=== PATIENT | male | born 1945 | race African-American/Black ===

== ENCOUNTER → 2017-12-22 | Outpatient (CLI) | payer MEDICARE, OTHER ==
[~2017-12-22] MED LIST: ALBU8.5H5 INH; AMIO200T42 PO; APIX5TAB PO; ARIP5TAB13 PO; ATOR10TA PO; CARI350T PO; CARV25TA12 PO; CLOP75TA52 PO; COUMADIN PO; DIAZ10TA PO; DICL100G19 TD; ENOX100S5 SQ; ESZO3TAB28 PO; FURO-92 PO; FURO-93 PO; HYDR-3307 PO; HYDR-3653 PO; IPRA4AER INH; LISI-466 PO; METF10002 PO; METFORMIN HCL ER PO; NITR0.4T SL; ONDA4TAB10 PO; ONDA4TAB12 PO; OXYC-307 PO; OXYC15TA PO; OXYC30TA66 PO; PHEN100C PO; POLY17PO5 PO; POTA20TA91 PO; ROSU20TA PO; SERT100T PO; SPIR25TA PO; TIOT18CA INH; WARF5TAB PO; [UNRECOGNIZED DRUG - OTHER]; [UNRECOGNIZED DRUG - OTHER]
[2017-12-22 15:28] LABS: ALBUMIN 2.9 g/dL (3.4-5.0); ANION GAP 7 mmol/L (5-15); CALCIUM 8.4 mg/dL (8.5-10.1); CHLORIDE 113 mmol/L (98-107)
[2017-12-22 15:31] LABS: ALANINE AMINOTRANSFERASE 29 U/L (12-78); ALKALINE PHOSPHATASE 106 U/L (45-117); BILIRUBIN,TOTAL 0.6 mg/dL (0.2-1.0); CREATININE 1.71 mg/dL (0.7-1.3); TOTAL PROTEIN 6.7 g/dL (6.4-8.2)
== END | disposition home or self-care (01) ==
LOC: STAR 14:03
PROVIDERS: ATTEND Internal Medicine
DX: Z01.818 Encounter for other preprocedural examination (principal); K26.4 Chronic or unspecified duodenal ulcer with hemorrhage
CPT/HCPCS: 36415; 80053; 93005

== ENCOUNTER 2017-12-31 09:18 | Day surgery (SDC) | payer MEDICARE, OTHER ==
[2017-12-22 14:41] VITALS: BP 117/88
[~2017-12-31] VITALS: Ht 180.3 cm; Wt 82.2 kg
[2017-12-31] MEDS ORDERED: LACTATED RINGERS 1,000 ML IV SCH (10:00)
[2017-12-31] MEDS ORDERED: CARV25TA PO (10:22)
[2017-12-31] MEDS ORDERED: HYDR-3342 PO (10:22)
[2017-12-31] MEDS ORDERED: DIGO125T PO (10:22)
[2017-12-31] MEDS ORDERED: ATOR-2 PO (10:22)
[2017-12-31] MEDS ORDERED: OMEP-110 PO (10:22)
[2017-12-31] MEDS ORDERED: ISOS10TA2 PO (10:22)
[2017-12-31] MEDS ORDERED: PROPOFOL 10 MG/ML, 20ML ONE (12:14)
[2017-12-31] MEDS ORDERED: LIDOCAINE PF 2%, 5ML ONE (12:14)
[2017-12-31] MEDS ORDERED: FENTANYL PF 100 MCG/2ML IV PRN (12:30)
[2017-12-31] MEDS ORDERED: LABETALOL 5MG/ML, 20ML IV PRN (12:30)
[2017-12-31] MEDS ORDERED: ALBUTEROL/IPRATROPIUM 2.5MG/0.5MG, 3 ML NPPB PRN (12:30)
[2017-12-31] MEDS ORDERED: ONDANSETRON 2MG/ML, 2ML IV PRN (12:30)
[2017-12-31] MEDS ORDERED: OXYcodone 5 MG/5 ML ORAL.SOL UDC PO PRN (12:30)
[2017-12-31] MEDS ORDERED: ACETAMINOPHEN 325 MG TABLET PO PRN (12:30)
== END 2017-12-31 15:00 | disposition home or self-care (01) ==
LOC: OUT 09:18
PROVIDERS: ATTEND Internal Medicine
DX: K29.50 Unspecified chronic gastritis without bleeding (principal); I50.9 Heart failure, unspecified; I25.10 Atherosclerotic heart disease of native coronary artery without angina pectoris; J44.9 Chronic obstructive pulmonary disease, unspecified; E11.9 Type 2 diabetes mellitus without complications; I48.91 Unspecified atrial fibrillation; Z88.0 Allergy status to penicillin; Z86.718 Personal history of other venous thrombosis and embolism; Z95.0 Presence of cardiac pacemaker; Z95.810 Presence of automatic (implantable) cardiac defibrillator; Z79.899 Other long term (current) drug therapy
CPT/HCPCS: 43239; 88305; J2704; J7120

== ENCOUNTER → 2018-02-26 | Outpatient (CLI) | payer MEDICARE, OTHER ==
[~2018-02-26] MED LIST changes: +ATOR-2 PO; +CARV25TA PO; +DIGO125T PO; +HYDR-3342 PO; +ISOS10TA2 PO; +OMEP-110 PO; +OMNIPAQUE 350 MG/ML, 100ML BOTTLE ONE
== END | disposition home or self-care (01) ==
LOC: CFH 09:41
PROVIDERS: ATTEND Internal Medicine
DX: K57.30 Diverticulosis of large intestine without perforation or abscess without bleeding (principal); K80.20 Calculus of gallbladder without cholecystitis without obstruction; K40.90 Unilateral inguinal hernia, without obstruction or gangrene, not specified as recurrent; I70.90 Unspecified atherosclerosis; N40.0 Benign prostatic hyperplasia without lower urinary tract symptoms; I51.7 Cardiomegaly; J90 Pleural effusion, not elsewhere classified; J98.11 Atelectasis; K43.9 Ventral hernia without obstruction or gangrene; N20.0 Calculus of kidney; N28.1 Cyst of kidney, acquired; K92.1 Melena; E11.9 Type 2 diabetes mellitus without complications; Z86.14 Personal history of Methicillin resistant Staphylococcus aureus infection
CPT/HCPCS: 74177; 82565; Q9967